=== PATIENT | female | born 1950 | race Caucasian/White ===

== ENCOUNTER 2021-01-25 01:51 | Emergency (ER) | payer MEDICARE, OTHER ==
--- NOTE | 2021-01-25 02:56 | EDM.PDOC ---
ED HPI GENERAL MEDICAL PROBLEM - General Chief Complaint: Chest Pain Stated Complaint: CHEST PAIN Time Seen by Provider: 01/25/21 02:02 Source of Information: Reports: Patient History Limitations: Reports: No Limitations - History of Present Illness INITIAL COMMENTS - FREE TEXT/NARRATIVE: This is a 70-year-old female. She comes today because she is having back pain that radiates around to the front and also some chest pain. Either Tuesday or she was diagnosed with having internal shingles that was causing her pain. She has been having also some muscle irritability in her abdomen due to the pain and she feels like she is having spasms. Apparently this morning about 2 to 3 hours prior to coming to the ER she developed this pain that seemed to get worse she took 4 baby aspirin's at home before coming to the ER. The patient is very unwilling to commit to specifics when I ask her about her pain but I was finally able to get her show me in her lower thoracic area where the pain seems to occur and wrap around to the front in the upper abdomen. She is already on acyclovir dexamethasone and gabapentin. She started that she believes yesterday. She is here because she is concerned about her heart since she has a history of irregular heart rate or something going on with her heart that she cannot describe to me but she states she has never actually had a heart attack. She denies any significant fever or chills and no cough. She has not had any nausea or diarrhea. When the patient was at the doctor's office Tuesday or they did do x-rays on her back and apparently her chest according to the patient and she tells me that everything was normal. Left Chest Pain Score (Numeric/FACES): 6 - Related Data Allergies Allergy/AdvReac Type Severity Reaction Status Date / Time amoxicillin Allergy Severe Rash Verified 01/25/21 02:20 azithromycin Allergy Severe Swollen Verified 01/25/21 02:20 Tongue doxycycline Allergy Severe Swollen Verified 01/25/21 02:20 Tongue gluten Allergy Severe Diarrhea Verified 01/25/21 02:20 Home Meds: Home Meds Acyclovir [Zovirax] 400 mg PO 5XDAY 01/25/21 [History] Gabapentin [Neurontin] 1 cap PO ASDIRECTED PRN 01/25/21 [History] dexAMETHasone [Dexamethasone] 2 mg PO DAILY 01/25/21 [History] Past Medical History HEENT History: Reports: Impaired Vision Other HEENT History: wears glasses Cardiovascular History: Reports: Other (See Below) Other Cardiovascular History: LVH Gastrointestinal History: Reports: Other (See Below) Other Gastrointestinal History: Gluten Allergy - Infectious Disease History Infectious Disease History: Reports: Novel Coronavirus, Shingles - Past Surgical History HEENT Surgical History: Reports: Adenoidectomy, Oral Surgery, Tonsillectomy Social & Family History - Family History Family Medical History: No Pertinent Family History - Tobacco Use Tobacco Use Status *Q: Former Tobacco User Used Tobacco, but Quit: Yes Month/Year Tobacco Last Used: 10/1969 - Caffeine Use Caffeine Use: Reports: None - Recreational Drug Use Recreational Drug Use: No ED ROS GENERAL - Review of Systems Review Of Systems: See Below Constitutional: Denies: Fever, Chills HEENT: Reports: No Symptoms Respiratory: Denies: Shortness of Breath, Cough Cardiovascular: Reports: Chest Pain. Denies: Edema Endocrine: Reports: No Symptoms GI/Abdominal: Reports: Abdominal Pain. Denies: Diarrhea, Nausea, Vomiting : Reports: No Symptoms Musculoskeletal: Reports: Back Pain Neurological: Reports: Other (Internal shingles) Psychiatric: Reports: No Symptoms ED EXAM, GENERAL - Physical Exam Exam: See Below Exam Limited By: No Limitations General Appearance: Alert, WD/WN, Mild Distress Eye Exam: Bilateral Eye: Normal Inspection Ears: Normal External Exam Nose: Normal Inspection Throat/Mouth: Normal Lips, Normal Voice, No Airway Compromise Head: Normocephalic Neck: Supple Respiratory/Chest: No Respiratory Distress, Lungs Clear, Normal Breath Sounds, Other (Anterior chest shows no shingle type lesions developing though she complains of pain in her anterior chest.) Cardiovascular: Regular Rate, Rhythm, No Murmur GI/Abdominal: Soft, No Distention, Tender, Other (Complains of upper abdominal discomfort but no lower abdominal discomfort. Looking at the abdomen she does not appear to have any shingle lesions starting. It is the upper abdomen she that she feels like she gets spasms when the pain gets worse.). No: Guarding, Rigid, Rebound Back Exam: Normal Inspection, Full Range of Motion, Other (Her back it appears to be the lower thoracic area where she complains of the pain coming around towards the front. Again there is no obvious shingle lesions developing in the skin areas. The skin itself does not appear to be hypersensitive on palpation.) Neurological: Alert, Oriented Psychiatric: Normal Affect, Normal Mood Skin Exam: Warm, Dry #1 Interpretation EKG Date: 01/25/21 Time: 02:00 EKG Interpretation Comments: EKG shows a normal sinus rhythm rate of 74. There are no acute ST or T wave changes and there are no acute ischemia noted. There is a suggestion she might have had an old anterior septal DE but she has no history of having an DE. Course - Vital Signs Last Recorded V/S: Last Vital Signs Temp 96.9 F 01/25/21 02:12 Pulse 71 01/25/21 02:12 Resp 18 01/25/21 02:12 BP 165/95 H 01/25/21 02:12 Pulse Ox 97 01/25/21 02:12 - Orders/Labs/Meds Orders: Active Orders 24 hr Category Date Time Status EKG Documentation Completion [RC] ASDIRECTED Care 01/25/21 01:56 Active EKG 12 Lead [EK] Stat Ther 01/25/21 01:56 Ordered Labs: Laboratory Tests 01/25/21 01/25/21 Range/Units 02:20 02:20 WBC 6.90 (3.98-10.04) K/mm3 RBC 3.91 L (3.98-5.22) M/mm3 Hgb 12.2 (11.2-15.7) gm/dl Hct 38.7 (34.1-44.9) % MCV 99.0 H (79.4-94.8) fl MCH 31.2 (25.6-32.2) pg MCHC 31.5 L (32.2-35.5) g/dl RDW Std Deviation 54.5 H (36.4-46.3) fL Plt Count 258 (182-369) K/mm3 MPV 10.1 (9.4-12.3) fl Neut % (Auto) 64.7 (34.0-71.1) % Lymph % (Auto) 17.1 L (19.3-51.7) % [place] % (Auto) 16.4 H (4.7-12.5) % Eos % (Auto) 1.4 (0.7-5.8) Baso % (Auto) 0.1 (0.1-1.2) % Neut # (Auto) 4.46 (1.56-6.13) K/mm3 Lymph # (Auto) 1.18 (1.18-3.74) K/mm3 [place] # (Auto) 1.13 H (0.24-0.36) K/mm3 Eos # (Auto) 0.10 (0.04-0.36) K/mm3 Baso # (Auto) 0.01 (0.01-0.08) K/mm3 Manual Slide Review Abnormal smear Sodium 139 (136-145) mEq/L Potassium 4.2 (3.5-5.1) mEq/L Chloride 102 (98-107) mEq/L Carbon Dioxide 28 (21-32) mEq/L Anion Gap 13.2 (5-15) BUN 34 H (7-18) mg/dL Creatinine 1.0 (0.55-1.02) mg/dL Est Cr Clr Drug Dosing 54.52 mL/min Estimated GFR (MDRD) 55 (>60) mL/min BUN/Creatinine Ratio 34.0 H (14-18) Glucose 87 (80-115) mg/dL Calcium 8.5 (8.5-10.1) mg/dL Total Bilirubin 0.5 (0.2-1.0) mg/dL AST 21 (15-37) U/L ALT 40 (14-59) U/L Alkaline Phosphatase 26 L (46-116) U/L Troponin I < 0.017 (0.00-0.056) ng/mL Total Protein 6.8 (6.4-8.2) g/dl Albumin 3.2 L (3.4-5.0) g/dl Globulin 3.6 gm/dL Albumin/Globulin Ratio 0.9 L (1-2) - Re-Assessments/Exams Free Text/Narrative Re-Assessment/Exam: 01/25/21 04:14 I spoke to the patient and her significant other regarding the lab results. Essentially they are within normal limits and her heart enzyme was negative. She relates to me now that she thinks maybe this might be related to the gabapentin because she noted yesterday when she took it that it kind of bothered her a little bit and then that is when this seemed to get worse this morning is when she took her gabapentin this evening. I suggested she hold the gabapentin and then talk to her doctor on Tuesday morning but continue the other medications. Departure - Departure Time of Disposition: 04:15 Disposition: Home, Self-Care 01 Condition: Fair Clinical Impression: Atypical chest pain Shingles Qualifiers: Herpes zoster complications: without complications Qualified Code(s): B02.9 - Zoster without complications Referrals: Gina Galicia, [employer] [Primary Care Provider] - Forms: ED Department Discharge Additional Instructions: Continue with your shingle medications but hold the gabapentin since this might be causing a side effect with increasing symptoms, call your doctor on Tuesday regarding the gabapentin to see if they want you to continue it or change you to another medication, return to the ER if your symptoms worsen. Sepsis Event Note (ED) - Evaluation Sepsis Screening Result: No Definite Risk - Focused Exam Vital Signs: Vital Signs Temp Pulse Resp BP Pulse Ox 01/25/21 02:12 96.9 F 71 18 165/95 H 97 - My Orders Last 24 Hours: My Active Orders 01/25/21 01:56 EKG Documentation Completion [RC] ASDIRECTED EKG 12 Lead [EK] Stat - Assessment/Plan Last 24 Hours: My Active Orders 01/25/21 01:56 EKG Documentation Completion [RC] ASDIRECTED EKG 12 Lead [EK] Stat
== END 2021-01-25 04:18 | disposition home or self-care (01) ==
LOC: JD.ED 01:51
DX: R07.89 Other chest pain (principal); B02.9 Zoster without complications; Z88.1 Allergy status to other antibiotic agents; Z88.0 Allergy status to penicillin; Z91.048 Other nonmedicinal substance allergy status; Z87.891 Personal history of nicotine dependence
CPT/HCPCS: 36415; 80053; 84484; 85025; 93005; 93010; 99284; 99285-25

== ENCOUNTER 2024-07-05 08:58 | Day surgery (SDC) | payer MEDICARE, OTHER ==
[~2024-07-05 08:58] MED LIST: Cefuroxime 10 MG/ML SYRINGE EYELF SCH; Lidocaine 1% PF 2 ML SDV INJECT SCH; Pilocarpine 4% Ophth Soln 15 ML Bot EYELF SCH
[2024-07-05] MEDS: Polymyxin B/Trimethoprim 10 ML Bottle EYELF SCH (09:45)
[2024-07-05] MEDS: Brimonidine 0.2% Ophth Soln 5 ML Bottle EYELF SCH (09:51)
[2024-07-05] MEDS: Phenylephrine 2.5% Ophth Soln 2 ML Bot EYELF SCH (09:55)
[2024-07-05] MEDS: Tropicamide 1% Ophth Soln 3 ML Bottle EYELF SCH (10:00)
[2024-07-05] MEDS: Tetracaine HCl/PF 0.5% 4 ML Bottle EYEBOTH SCH (10:49)
== END 2024-07-05 11:36 | disposition home or self-care (01) ==
LOC: JD.SDS 08:58
PROVIDERS: ATTEND Ophthalmology
DX: H25.813 Combined forms of age-related cataract, bilateral (principal); H21.81 Floppy iris syndrome; H21.42 Pupillary membranes, left eye; H35.3131 Nonexudative age-related macular degeneration, bilateral, early dry stage; H35.363 Drusen (degenerative) of macula, bilateral; H02.831 Dermatochalasis of right upper eyelid; H02.834 Dermatochalasis of left upper eyelid; H16.103 Unspecified superficial keratitis, bilateral; H16.223 Keratoconjunctivitis sicca, not specified as Sjogren's, bilateral; H57.813 Brow ptosis, bilateral
CPT/HCPCS: A9270-GY; J3490